=== PATIENT | male | born 1960 | race Caucasian/White ===

== ENCOUNTER 2021-05-06 16:44 | Emergency (ER) | payer MEDICAID, SELFPAY ==
[2021-05-06 17:03] VITALS: BP 123/84; PULSE 70; RESP 18; TEMP 37.2; O2SAT 93
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
[2021-05-06] MEDS: HYDROcodone-acetaminophen 5-325 mg Tablet 1 TAB PO (18:37)
[2021-05-06] MEDS: tetanus-dipt-pertussis 0.5 mL SDV IM (18:38)
[2021-05-06] MEDS: silver sulfadiazine cream 1% 50 gm 1 APPLIC TOPICAL (18:38)
[2021-05-06 18:51] VITALS: RESP 18; TEMP 37.2; O2SAT 93
--- NOTE | 2021-05-07 09:06 | DCPLANNER ---
outpatient pharmacy manager had message to schedule a follow up appointment for patient with Wound Care. outpatient pharmacy manager called phone number [phone], unable to speak with patient at this time, a voicemail was left for patient to return field nurse case manager phone call.
== END 2021-05-06 18:51 | disposition home or self-care (01) ==
PROVIDERS: Emergency Provider Emergency Medicine; PCP Nurse Practitioner
DX: T22.012A Burn of unspecified degree of left forearm, initial encounter (principal); T31.0 Burns involving less than 10% of body surface; X08.8XXA Exposure to other specified smoke, fire and flames, initial encounter; F17.210 Nicotine dependence, cigarettes, uncomplicated; Z23 Encounter for immunization
CPT/HCPCS: 90715; 99282

== ENCOUNTER 2021-05-11 08:29 | Outpatient (CLI) | payer MEDICAID, SELFPAY | END 2021-05-11 08:30 | disposition home or self-care (01) | LOC: WOUND 08:29 | PROVIDERS: PCP Nurse Practitioner; Visit Provider Emergency Medicine | DX: T22.212A Burn of second degree of left forearm, initial encounter (principal); X08.8XXA Exposure to other specified smoke, fire and flames, initial encounter | CPT/HCPCS: 11042; 11045; G0463 ==

== ENCOUNTER 2021-05-18 08:31 | Outpatient (CLI) | payer MEDICAID, SELFPAY | END 2021-05-18 08:32 | disposition home or self-care (01) | LOC: WOUND 08:31 | PROVIDERS: PCP Nurse Practitioner; Visit Provider Thoracic Surgery (Cardiothoracic Vascular Surgery) | DX: T22.212A Burn of second degree of left forearm, initial encounter (principal); X08.8XXA Exposure to other specified smoke, fire and flames, initial encounter; F17.210 Nicotine dependence, cigarettes, uncomplicated | CPT/HCPCS: 97597 ==

== ENCOUNTER → 2021-09-09 11:28 | Outpatient (BNVA) | payer MEDICAID, SELFPAY | PROVIDERS: PCP Nurse Practitioner; Visit Provider Nurse Practitioner Family | DX: Z20.822 Contact with and (suspected) exposure to COVID-19 (principal); I10 Essential (primary) hypertension | CPT/HCPCS: 87635 ==

== ENCOUNTER → 2022-07-28 11:27 | Outpatient (BNVA) | payer OTHER, SELFPAY | PROVIDERS: PCP Nurse Practitioner Family; Visit Provider Nurse Practitioner Family | DX: I10 Essential (primary) hypertension (principal) | CPT/HCPCS: 80053; 80061; 85025 ==

== ENCOUNTER 2023-09-14 15:41 | Emergency (ER) | payer BC, OTHER, SELFPAY ==
[2023-09-14] VITALS (23 sets, daily range): BP systolic 122–141; BP diastolic 83–93; PULSE 70–87; RESP 8–86; TEMP 36.3; O2SAT 92–98; BMI 23.6
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
[2023-09-14] MEDS: morphine 4 mg/mL SDV 1 mL IVP (15:55)
[2023-09-14] MEDS: ondansetron 2 mg/ML SDV 2 mL 4 MG IVP (15:56)
[2023-09-14] MEDS: tetanus-dipt-pertussis 0.5 mL SDV IM (15:58)
[2023-09-14] MEDS: fentaNYL 50 mcg/mL INJ 2mL IVP ×2 (16:02→17:14)
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
[2023-09-14 16:09] LABS: Basophils # 0.1 10^3/uL (0.0-0.1); Basophils % 0.6 %; Eosinophils # 0.2 10^3/uL (0.0-0.8); Eosinophils % 2.2 %; Hematocrit 36.7 % (37-53); Lymphocytes # 3.1 10^3/uL (0.8-4.8); Lymphocytes % 30.2 %; Mean Corpuscular HGB Conc 33.5 g/dL (30-55); Mean Corpuscular Hemoglobin 31.4 pg (27-33); Mean Corpuscular Volume 93.6 fl (82-101); Monocytes # 0.7 10^3/uL (0.2-0.9); Monocytes % 6.5 %; Neutrophils # 6.21 10^3/uL (1.8-7.7); Neutrophils % 60.1 %; Nucleated Red Blood Cells % 0 %; Platelet Count 210 10^3/cmm (157-399); Red Blood Count 3.92 10^6/uL (3.85-5.65); Red Cell Distribution Width 12.5 % (12.1-15.1); White Blood Count 10.33 10^3/uL (3.29-11.43)
[2023-09-14] MEDS: ceFAZolin 1,000 MG in sodium chloride 0.9% (plus) 50 ML 100 MG IV (16:10)
[2023-09-14 16:30] LABS: Alanine Aminotransferase 30 U/L (0-41); Albumin Level 4.6 g/dL (3.5-5.2); Alkaline Phosphatase 54 U/L (40-130); Anion Gap 21.8 (5-19); Aspartate Amino Transferase 29 U/L (0-40); Blood Urea Nitrogen 17 mg/dL (8-23); Carbon Dioxide 20 mmol/L (22-29); Chloride 99 mmol/L (98-107); Globulin 2.3 g/dL (1.3-4.6); Glomerular Filtration Rate 85.5 mL/min (90-130); Glucose 119 mg/dL (65-115); Osmolality Calculated 287 mOsm/kg (285-295); Potassium 3.8 mmol/L (3.5-5.1); Sodium 137 mmol/L (136-145); Total Bilirubin 0.6 mg/dL (0.15-1.2); Total Protein 6.9 g/dL (6.6-8.7)
[2023-09-14] MEDS: iohexol 350 mg/mL 500 mL Btl (per mL) IV (16:32)
== END 2023-09-14 18:10 | disposition short-term general hospital (02) ==
PROVIDERS: Emergency Provider Family Medicine; PCP Nurse Practitioner Family
DX: S52.091B Other fracture of upper end of right ulna, initial encounter for open fracture type I or II (principal); F17.210 Nicotine dependence, cigarettes, uncomplicated; W31.89XA Contact with other specified machinery, initial encounter; Z23 Encounter for immunization
CPT/HCPCS: 36415; 73080; 73206; 80053; 85025; 90715; 96365; 96375; 96376; 99285; 99291; J0690; J2270; J2405; J3010; Q9967

== ENCOUNTER 2025-09-22 07:57 | Outpatient (CLI) | payer BC, SELFPAY ==
[2025-09-22 08:18] VITALS: BMI 28.7
--- NOTE | 2025-09-22 08:18 | NMCV_ITS ---
NM ludwig perf SPECT r/s* [id number] Jameson Torres Age: 65 Gender: M : 1960 Exam Date: 09/22/2025 09:05 Ordering Phys: Tristen Bautista MD Technologist: MAJO Long Exam Location: [facility] Indications: cp STRESS TEST Please see separate stress test report in [facility] for full findings IMAGE PROTOCOL Rest/Stress 1 Lexiscan Day Radiopharmaceutical Dose (mCi) Administration Site Administered by Rest: Tc-99m 10.5 IV Jesusita Floyd, TEAM DRIVER Sestamibi Stress:Tc-99m 32.4 IV Jesusita Capellangle, TEAM DRIVER Sestamibi Rest: 22-Sep-2025 60 Discovery 630 Stress: 22-Sep-2025 30 Discovery 630 0.4mg Lexiscan. Images obtained in supine and prone position. SPECT RESULTS Technical Quality: Good Raw Data Analysis: Normal Image Corrections: No attenuation or motion correction applied Summed Stress Score: 0 Summed Rest Score: 0 Summed Difference Score: 0 PERFUSION FINDINGS SPECT images demonstrate homogeneous tracer distribution throughout the myocardium. FUNCTIONAL RESULTS (calculated via Gated SPECT) Stress Image LV EF (%): 59 Stress EDV (mL):90 TID: 1.05 Stress ESV (mL):37 FUNCTIONAL FINDINGS: There is normal left ventricular systolic function. IMPRESSIONS Myocardial perfusion imaging is normal. Curly Silver MD (Electronically Signed) Final Date: 22 September 2025 13:06 S
--- NOTE | 2025-09-22 08:18 | ECG_ITS ---
[facility] Test Date: 2025-09-22 Pat Name: Jameson Torres Department: Room: Gender: Male Rn Birthing: : 1960 Requested By: Tristen Bautista Order Number: [id number] MD: SOO BEATTY Interpretive Statements Lung unchanged pre/post procedure; Intraprocedure shortess of breath; Symptoms resoled by discharge NOTE: Please note that this is the electrocardiogram portion of the Lexiscan/Sestamibi stress test. The perfusion scan will be documented separately. DATA: Baseline heart rate was 60 beats per minute. Baseline blood pressure was 105/77 millimeters of mercury. Target heart rate was 156. Maximum heart rate achieved was 88. which was 56% of the predicted target heart rate. Maximum blood pressure was 122/81 millimeters of mercury. The reason for ending the test was completion of the protocol. The patient did not experience any symptoms. ELECTROCARDIOGRAM: BASELINE: Sinus rhythm. Normal axis. Otherwise, no ST-T changes suggestive of ischemia noted. No arrhythmia noted. EXERCISE: After Lexiscan injection, no ST-T changes suggestive of ischemic noted. No arrhythmia noted. CONCLUSION: Please note due to baseline abnormality of the EKG specificity and sensitivity of the EKG portion of LexiScan MIBI stress test will be low 1. EKG not suggestive of ischemia 2. Lexiscan injection unremarkable. 3. Perfusion scan will be documented separately. Electronically Signed On 10-02-2025 17:10:24 SCREW MACHINE HAND by SOO BEATTY [email or web address]
[2025-09-22 09:47] VITALS: BP 120/77; PULSE 78
== END 2025-09-22 07:58 | disposition home or self-care (01) ==
PROVIDERS: PCP Internal Medicine; Visit Provider Internal Medicine
DX: R07.89 Other chest pain (principal)
CPT/HCPCS: 36415; 78452; 93017; 96374; A9500; J2785